=== PATIENT | male | born 1945 | race American Indian/Alaskan Native ===

== ENCOUNTER 2020-06-24 16:59 | Emergency (ER) | payer MEDICARE ==
[2020-06-24 17:54] LABS: Basophils # (Auto) 0.1 K/mm3 (0.0-0.1); Basophils % (Auto) 0.7 % (0.0-1.8); Eosinophils # (Auto) 0.1 K/mm3 (0.0-0.4); Hematocrit 39.3 % (35.5-45.6); Lymphocytes # (Auto) 2.7 K/mm3 (1.2-5.4); Lymphocytes % (Auto) 38.7 % (13.4-35.0); Mean Corpuscular HGB Conc 33 % (32-34); Mean Corpuscular Volume 94 fl (84-94); Monocytes # (Auto) 0.6 K/mm3 (0.0-0.8); Monocytes % (Auto) 8.6 % (0.0-7.3); Platelet Count 194 K/mm3 (140-440); Red Cell Distribution Width 18.3 % (13.2-15.2)
[2020-06-24 18:26] LABS: BUN/Creatinine Ratio 9; Blood Urea Nitrogen 7 mg/dL (9-20); Hemolysis Index 5
[2020-06-24] MEDS ORDERED: MORPHINE 4 MG/1 ML INJ IV ONE ×2 (19:53→21:28)
[2020-06-24] MEDS ORDERED: ONDANSETRON 4 MG/2 ML INJ IV ONE (19:53)
--- NOTE | 2020-06-24 19:56 | Emergency Department Report ---
ED Alcohol HPI - General Chief Complaint: Alcohol Stated Complaint: ALCOHOL ABUSE Time Seen by Provider: 06/24/20 19:38 Source: patient Mode of arrival: Ambulatory Limitations: No Limitations - History of Present Illness Initial Comments: Patient is 75 years old male with history of chronic alcoholism. Patient presented to the ER stating that he is having trouble with alcohol and he wants alcohol detox. Patient stated that he drinks daily. Patient stated that he is having some abdominal pain associated with some nausea but no vomiting. Patient denied any fever or chills. No visual hallucination. MD Complaint: alcohol intoxication, alcohol dependence, desires rehab Last Drink: just [employer] Chronic Alcohol Use: Yes Recent Trauma: No Associated Symptoms: nausea, abdominal pain. denies: hematemesis, depression, suicidality Treatments Prior to Arrival: none - Related Data Home Medications Medication Instructions Recorded Confirmed Last Taken Clopidogrel [Plavix] 75 mg PO QDAY 06/25/20 06/25/20 Unknown Gabapentin [Neurontin] 300 mg PO BID 06/25/20 06/25/20 Unknown HYDROcodone/ACETAMINOPHEN 1 each PO Q6H PRN 06/25/20 06/25/20 Unknown [Verdrocet 2.5-325 mg TAB] Insulin Lispro [Humalog 100 10 units SQ AC 06/25/20 06/25/20 Unknown UNITS/ML Kwikpen] Pantoprazole [Protonix] 40 mg PO QDAY 06/25/20 06/25/20 Unknown Simvastatin 40 mg PO DAILY 06/25/20 06/25/20 Unknown amLODIPine [Norvasc] 10 mg PO DAILY 06/25/20 06/25/20 Unknown hydroCHLOROthiazide [HCTZ] 25 mg PO QDAY 06/25/20 06/25/20 Unknown Allergies Allergy/AdvReac Type Severity Reaction Status Date / Time aspirin Allergy Unknown Verified 06/24/20 17:29 ED Review of Systems ROS: Stated complaint: ALCOHOL ABUSE Other details as noted in HPI Comment: All other systems reviewed and negative Constitutional: denies: chills, fever Respiratory: denies: cough Cardiovascular: denies: chest pain, palpitations Gastrointestinal: abdominal pain, nausea. denies: vomiting, diarrhea, constipation, hematemesis, melena, hematochezia Musculoskeletal: denies: back pain Neurological: denies: headache, weakness, numbness, paresthesias, confusion, abnormal gait Psychiatric: denies: depression, auditory hallucinations, visual hallucinations, homicidal thoughts, suicidal thoughts ED Past Medical Hx - Past Medical History Hx Diabetes: Yes - Surgical History Hx Coronary Stent: Yes - Social History Smoking Status: Current Every Day Smoker Substance Use Type: Alcohol, Marijuana - Medications Home Medications: Home Medications Medication Instructions Recorded Confirmed Last Taken Type Clopidogrel [Plavix] 75 mg PO QDAY 06/25/20 06/25/20 Unknown History Gabapentin [Neurontin] 300 mg PO BID 06/25/20 06/25/20 Unknown History HYDROcodone/ACETAMINOPHEN 1 each PO Q6H PRN 06/25/20 06/25/20 Unknown History [Verdrocet 2.5-325 mg TAB] Insulin Lispro [Humalog 100 10 units SQ AC 06/25/20 06/25/20 Unknown History UNITS/ML Kwikpen] Pantoprazole [Protonix] 40 mg PO QDAY 06/25/20 06/25/20 Unknown History Simvastatin 40 mg PO DAILY 06/25/20 06/25/20 Unknown History amLODIPine [Norvasc] 10 mg PO DAILY 06/25/20 06/25/20 Unknown History hydroCHLOROthiazide [HCTZ] 25 mg PO QDAY 06/25/20 06/25/20 Unknown History ED Physical Exam - General Limitations: No Limitations General appearance: alert, in no apparent distress, appears intoxicated - Head Head exam: Present: atraumatic, normocephalic, normal inspection - Eye Eye exam: Present: normal appearance, PERRL - ENT ENT exam: Present: normal exam, normal orophraynx, mucous membranes moist - Neck Neck exam: Present: normal inspection, full ROM. Absent: tenderness, m eningismus - Respiratory Respiratory exam: Present: normal lung sounds bilaterally - Cardiovascular Cardiovascular Exam: Present: tachycardia - GI/Abdominal GI/Abdominal exam: Present: soft, distended, normal bowel sounds. Absent: tenderness, guarding, rebound, rigid, organomegaly, mass, bruit, pulsatile mass, hernia - Extremities Exam Extremities exam: Present: normal inspection, full ROM - Back Exam Back exam: Present: normal inspection, full ROM. Absent: CVA tenderness (R), CVA tenderness (L) - Neurological Exam Neurological exam: Present: alert, oriented X3, CN II-XII intact - Psychiatric Psychiatric exam: Present: normal mood - Skin Skin exam: Present: warm, intact, normal color ED Course Vital Signs 06/24/20 06/24/20 06/24/20 17:33 20:00 20:19 Temperature 97.4 F L 98.6 F Pulse Rate 102 H 113 H Respiratory 20 18 18 Rate Blood Pressure 132/83 Blood Pressure 143/86 [Left] O2 Sat by Pulse 96 97 Oximetry 06/24/20 06/24/20 06/24/20 20:49 21:37 22:07 Temperature Pulse Rate Respiratory 18 18 18 Rate Blood Pressure Blood Pressure [Left] O2 Sat by Pulse Oximetry 06/24/20 06/24/20 06/24/20 22:16 22:30 23:00 Temperature Pulse Rate 114 H 121 H 112 H Respiratory 12 13 10 L Rate Blood Pressure 143/86 158/91 145/82 Blood Pressure [Left] O2 Sat by Pulse 96 95 Oximetry 06/24/20 06/24/20 06/24/20 23:15 23:30 23:45 Temperature Pulse Rate 116 H 109 H 122 H Respiratory 15 17 18 Rate Blood Pressure 155/87 129/76 142/82 Blood Pressure [Left] O2 Sat by Pulse 95 Oximetry 06/25/20 06/25/20 06/25/20 00:00 00:16 00:25 Temperature Pulse Rate 129 H 126 H Respiratory 19 14 18 Rate Blood Pressure 142/82 156/84 Blood Pressure [Left] O2 Sat by Pulse 96 94 Oximetry 06/25/20 06/25/20 06/25/20 00:30 00:45 00:55 Temperature Pulse Rate 122 H 120 H Respiratory 17 16 18 Rate Blood Pressure 159/89 161/85 Blood Pressure [Left] O2 Sat by Pulse 94 95 Oximetry 06/25/20 06/25/20 06/25/20 01:00 01:16 01:30 Temperature Pulse Rate 121 H 111 H 107 H Respiratory 15 15 16 Rate Blood Pressure 145/81 163/79 148/81 Blood Pressure [Left] O2 Sat by Pulse Oximetry 06/25/20 06/25/20 06/25/20 01:46 02:00 02:30 Temperature Pulse Rate 123 H 113 H 116 H Respiratory 15 17 16 Rate Blood Pressure 165/81 149/94 146/84 Blood Pressure [Left] O2 Sat by Pulse 95 94 Oximetry 12/22/20 12/22/20 12/22/20 02:33 03:15 03:30 Temperature Pulse Rate 111 H 110 H Respiratory 18 16 16 Rate Blood Pressure 136/83 153/76 Blood Pressure [Left] O2 Sat by Pulse 95 Oximetry 06/25/20 06/25/20 06/25/20 03:33 03:45 04:00 Temperature Pulse Rate 109 H 113 H Respiratory 18 16 17 Rate Blood Pressure 141/74 144/79 Blood Pressure [Left] O2 Sat by Pulse Oximetry 06/25/20 06/25/20 06/25/20 04:30 04:45 05:00 Temperature Pulse Rate 109 H 101 H 109 H Respiratory 17 16 17 Rate Blood Pressure 152/77 139/73 125/71 Blood Pressure [Left] O2 Sat by Pulse Oximetry 06/25/20 06/25/20 06/25/20 05:15 05:30 05:45 Temperature Pulse Rate 109 H 105 H 100 H Respiratory 16 12 15 Rate Blood Pressure 146/82 146/77 129/61 Blood Pressure [Left] O2 Sat by Pulse Oximetry 06/25/20 06/25/20 06/25/20 06:00 06:15 06:30 Temperature Pulse Rate 95 H 93 H 93 H Respiratory 16 15 16 Rate Blood Pressure 145/77 129/56 145/74 Blood Pressure [Left] O2 Sat by Pulse 95 91 Oximetry 06/25/20 06/25/20 06/25/20 06:45 07:00 07:15 Temperature Pulse Rate 96 H 93 H 96 H Respiratory 15 15 15 Rate Blood Pressure 134/52 134/52 137/77 Blood Pressure [Left] O2 Sat by Pulse 88 97 90 Oximetry 06/25/20 06/25/20 06/25/20 07:30 07:45 08:00 Temperature Pulse Rate 97 H 95 H 112 H Respiratory 15 15 12 Rate Blood Pressure 128/77 128/75 128/75 Blood Pressure [Left] O2 Sat by Pulse 87 87 97 Oximetry 06/25/20 06/25/20 06/25/20 08:15 08:30 08:46 Temperature Pulse Rate 103 H 102 H 117 H Respiratory 17 16 14 Rate Blood Pressure 155/87 152/93 168/86 Blood Pressure [Left] O2 Sat by Pulse 94 98 94 Oximetry 06/25/20 06/25/20 06/25/20 09:00 09:15 09:30 Temperature Pulse Rate 127 H 110 H 110 H Respiratory 14 18 17 Rate Blood Pressure 168/86 193/91 168/90 Blood Pressure 168/86 [Left] O2 Sat by Pulse 94 90 92 Oximetry 06/25/20 06/25/20 06/25/20 09:45 10:00 10:15 Temperature Pulse Rate 105 H 107 H 104 H Respiratory 16 15 15 Rate Blood Pressure 142/88 169/81 151/84 Blood Pressure [Left] O2 Sat by Pulse 94 93 97 Oximetry 06/25/20 06/25/20 06/25/20 10:30 10:45 11:00 Temperature Pulse Rate 105 H 102 H 99 H Respiratory 17 16 15 Rate Blood Pressure 156/83 148/74 150/77 Blood Pressure [Left] O2 Sat by Pulse 93 91 92 Oximetry 06/25/20 11:15 Temperature Pulse Rate 97 H Respiratory 16 Rate Blood Pressure 142/81 Blood Pressure [Left] O2 Sat by Pulse 91 Oximetry ED Medical Decision Making - Lab Data Result diagrams: 06/24/20 17:42 06/24/20 17:42 - Radiology Data Radiology results: report reviewed - Medical Decision Making Patient is 75 years old male with history of chronic alcoholism. Patient presented to the ER stating that he is having trouble with alcohol and he wants alcohol detox. Patient stated that he drinks daily. Patient stated that he is having some abdominal pain associated with some nausea but no vomiting. Patient denied any fever or chills. No visual hallucination. Labs reviewed and is unremarkable. Patient started on CIWA protocol. Patient stated that he went to [facility] and they asked him to come to the emergency room for medical clearance. Patient is medically clear for alcohol rehab placement. Critical care attestation.: If time is entered above; I have spent that time in minutes in the direct care of this critically ill patient, excluding procedure time. ED Disposition Clinical Impression: Alcohol intoxication, Abdominal pain Disposition: [id number]/[id number] PSY HOSP/PSY UNIT Is pt being admited?: No Condition: Stable Instructions: Abdominal Pain, Adult, [id number] Referrals: PRIMARY CARE, [Primary Care Provider] - 3-5 Days
[2020-06-24 21:13] LABS: Bilirubin,Urine NEG (Negative); Blood,Urine NEG (Negative); Color,Urine Yellow (Yellow); Hyaline Casts,Urine 8 /LPF; Mucus,Urine FEW /HPF; Urobilinogen,Urine < 2.0 mg/dL (<2.0)
[2020-06-24 21:15] LABS: Protein,Urine >500 mg/dL (Negative)
[2020-06-24 21:20] LABS: Amphetamine Screen,Urine Negative; Benzodiazepines Screen,Urine Negative; Cocaine Screen,Urine Negative; Methadone Screen,Urine Negative; Opiate Screen,Urine Negative
[2020-06-24] MEDS ORDERED: POTASSIUM CHLORIDE ER 20 MEQ TAB PO ONE (21:33)
[2020-06-24 21:44] LABS: Cannabinoid Screen,Urine Positive
[2020-06-24] MEDS ORDERED: LORazepam 2 MG/ML VIAL IV PRN ×2 (22:22)
--- NOTE | 2020-06-24 22:28 | Cat Scan Report ---
CT ABDOMEN AND PELVIS WITH CONTRAST INDICATION / CLINICAL INFORMATION: Patient complains of abdominal pain. TECHNIQUE: Axial CT images were obtained through the abdomen and pelvis following the administration of intraven ous contrast. All CT scans at this location are performed using CT dose reduction for ALARA by means of automated exposure control. COMPARISON: None available. FINDINGS: LOWER CHEST: No significant abnormality. LIVER: Diffusely hypoattenuating hepatic parenchyma is compatible with steatosis. GALLBLADDER: No significant abnormality. PANCREAS: No significant abnormality. SPLEEN: No significant abnormality. ADRENALS: No significant abnormality. KIDNEYS / URETERS: No significant abnormality. URINARY BLADDER: No significant abnormality. REPRODUCTIVE ORGANS: No significant abnormality. STOMACH / SMALL BOWEL: No significant abnormality. COLON: No significant abnormality. APPENDIX: Not visualized. PERITONEUM: No free fluid. No free air. No fluid collection. LYMPH NODES: No significant adenopathy. AORTA / ARTERIES: Moderate atherosclerotic calcification without acute abnormality. There is an infra renal abdominal aortic aneurysm measuring 3.7 cm in maximum dimension. IVC / VEINS: No significant abnormality. SKELETAL SYSTEM: No significant abnormality. ADDITIONAL FINDINGS: None. IMPRESSION: 1. No acute abdominopelvic abnormality. 2. 3.7 cm infrarenal abdominal aortic aneurysm with moderate calcific atherosclerotic disease. 3. Hepatic steatosis. Signer Name: Morgan Kirkpatrick MD Signed: 06/24/2020 10:23 PM Workstation Name: [id number]
[2020-06-24] MEDS: LORazepam 2 MG/ML VIAL IV PRN (23:15)
[2020-06-25] MEDS ORDERED: KETOROLAC 30 MG/1 ML INJ ONE (00:20)
[2020-06-25] MEDS ORDERED: KETOROLAC 30 MG/1 ML INJ IV ONE (00:23)
[2020-06-25] MEDS ORDERED: SODIUM CHLORIDE 0.9% 1000 ML 1,000 ML ONE (00:28)
[2020-06-25] MEDS ORDERED: SODIUM CHLORIDE 0.9% 1000 ML 1,000 ML IV ONE (00:28)
[2020-06-25] MEDS ORDERED: GABAPENTIN 300 MG CAP PO ONE (02:29)
[2020-06-25] MEDS ORDERED: ACETAMINOPHEN 500 MG TAB PO ONE (02:29)
[2020-06-25] MEDS: LORazepam 2 MG/ML VIAL IV PRN ×2 (03:24→10:26)
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
[2020-06-25] MEDS ORDERED: SERTRALINE 25 MG TAB PO SCH (11:00)
[2020-06-25] MEDS ORDERED: DIVALPROEX DR 125 MG TAB PO SCH (11:00)
[2020-06-25 11:19] VITALS: BP 142/81
[2020-06-25] MEDS ORDERED: FOLIC ACID 1 MG TAB PO SCH (12:00)
[2020-06-25] MEDS ORDERED: MULTIVITAMINS ,THERAPEUTIC TAB PO ONE (12:00)
[2020-06-25] MEDS ORDERED: MELATONIN 5 MG TAB PO PRN (22:00)
[2020-06-25] MEDS ORDERED: traZODone 50 MG TAB PO SCH (22:00)
== END 2020-06-25 13:32 ==
LOC: ED 16:59
DX: F10.129 Alcohol abuse with intoxication, unspecified (principal); R10.9 Unspecified abdominal pain; R11.0 Nausea; E11.9 Type 2 diabetes mellitus without complications; F17.200 Nicotine dependence, unspecified, uncomplicated; F12.10 Cannabis abuse, uncomplicated; Z79.899 Other long term (current) drug therapy; Z88.8 Allergy status to other drugs, medicaments and biological substances
CPT/HCPCS: 36415; 74177; 80048; 80307; 81001; 83690; 85025; 87086; 96361; 96374; 96375; 96376; 99285; J1885; J2060; J2270; J2405; J7030; Q9967; U0003; 80320; G0480